=== PATIENT | male | born 1995 | race African-American/Black ===

== ENCOUNTER 2016-07-17 23:50 | Emergency (ER) | payer OTHER ==
[~2016-07-17 23:50] MED LIST: AMOXICILLIN875 MG; CLARITIN10 M1 PO; LIDOCAINE HC20 MG/13 TOP; NAPROSYN250 M1 PO; ZITHROMAX PO
[2016-07-17 23:53] LABS: INFLUENZA A NEG (NEG); INFLUENZA B NEG (NEG)
[2016-07-18 00:30] LABS: BASOPHIL% 0.2 % (0-2.5); EOSINOPHIL% 0.2 % (0.0-7.0); HEMATOCRIT 43.3 % (38.0-50.0); LYMPHOCYTE# 0.7 X10e3 (1.0-3.5); LYMPHOCYTE% 9.6 % (17.0-45.0); MEAN CELL VOLUME 91.1 FL (83-96); MEAN CORPUSCULAR HEMOGLOBIN 29.5 PG (28-34); MEAN CORPUSCULAR HGB CONC 32.4 g/dL (30-36); MEAN PLATELET VOLUME 9.5 FL (6.5-11.5); MONOCYTE# 0.9 X10e3 (0-1.0); MONOCYTE% 12.8 % (3.0-12.0); NEUTROPHIL# 5.3 X10e3 (1.5-7.1); NEUTROPHIL% 77.2 % (40-75); PLATELET COUNT 158 X10e3 (140-420); RED BLOOD COUNT 4.75 X10e (3.90-5.60); RED CELL DISTRIBUTION WIDTH 12.5 % (11.0-15.5); WHITE BLOOD COUNT 6.9 X10e3 (4.0-10.5)
[2016-07-18 00:32] LABS: DIFF IND NO
[2016-07-18 00:50] LABS: BLOOD UREA NITROGEN 11 mg/dL (9-23); CALCIUM SERUM 8.8 mg/dL (8.4-10.2); CARBON DIOXIDE 25 mmol/L (22-31); CHLORIDE 101 mmol/L (100-111); GLOM FILT RATE Estimated ABOVE60 mL/min (>60); GLUCOSE FASTING 89 mg/dL (70-110); POTASSIUM 3.4 mmol/L (3.5-5.1); SODIUM 136 mmol/L (135-145)
== END 2016-07-18 02:46 | disposition home or self-care (01) ==
LOC: CED 23:50
PROVIDERS: Emergency Medicine
DX: R11.10 Vomiting, unspecified (principal); R50.9 Fever, unspecified
CPT/HCPCS: 36415; 80048; 85025; 87804; 96361; 96374; 99284; J2405

== ENCOUNTER 2016-07-21 01:42 | Emergency (ER) | payer OTHER | END 2016-07-21 02:10 | disposition home or self-care (01) | LOC: CFTX 01:42 | DX: J02.0 Streptococcal pharyngitis (principal) | CPT/HCPCS: 87880; 99283 ==